=== PATIENT | male | born 1955 | race Caucasian/White ===

== ENCOUNTER 2017-02-24 09:39 | Observation (INO) | payer BC, OTHER ==
--- NOTE | 2017-02-24 11:44 | CR ---
INDICATION: Lung tumor, dehydration. CHEST: An AP portable upright view of the chest 02/24/2017 was compared with and revealed the heart to be slightly prominent in size, but essentially unchanged from the previous study. Overlying EKG leads are noted. A definite active infiltrate or effusion was not identified. There is an appearance suggesting exogenous obesity. IMPRESSION: No definite acute process. MTDD
[2017-02-24] MEDS ORDERED: LORazepam 2 MG/ML MDV IM PRN (11:47)
[2017-02-24] MEDS ORDERED: Lanolin/Mineral Oil/Petrolatum Ophth Oint 3.5 GM Tube EYEBOTH PRN (11:51)
[2017-02-24] MEDS ORDERED: Bisacodyl 5 MG Tab PO PRN (11:51)
[2017-02-24] MEDS ORDERED: Atropine 1% Ophth Soln 5 ML Bottle SL PRN (11:51)
[2017-02-24] MEDS ORDERED: Zolpidem 5 MG Tab PO PRN (11:51)
[2017-02-24] MEDS ORDERED: Docusate Sodium 100 MG Cap PO PRN (11:51)
[2017-02-24] MEDS ORDERED: Acetaminophen/HYDROcodone 325-10 MG Tab PO PRN (11:51)
[2017-02-24] MEDS ORDERED: Gabapentin 300 MG Cap PO PRN (11:51)
[2017-02-24] MEDS ORDERED: ALUM HYDROXIDE PO PRN ×3 (11:51)
[2017-02-24] MEDS ORDERED: Albuterol 0.083% 2.5 MG/3 ML Neb Soln NEB PRN (11:51)
[2017-02-24] MEDS ORDERED: Acetaminophen 325 MG Tab PO PRN (11:51)
[2017-02-24] MEDS ORDERED: Lidocaine 2% Viscous Solution 15 ML Cup PO PRN (11:51)
[2017-02-24] MEDS ORDERED: MAG HYDROXIDE PO PRN ×3 (11:51)
[2017-02-24] MEDS ORDERED: LIDOCAINE PO PRN ×3 (11:51)
[2017-02-24] MEDS ORDERED: Dexamethasone 4 MG Tab PO PRN (11:51)
[2017-02-24] MEDS ORDERED: Ondansetron 4 MG/2 ML SDV IVPUSH PRN (11:51)
[2017-02-24] MEDS ORDERED: Nitroglycerin 0.4 MG Tab.SL SL PRN (11:51)
[2017-02-24] MEDS ORDERED: DIPHENHYDRAMINE PO PRN ×3 (11:51)
[2017-02-24] MEDS ORDERED: Ibuprofen 600 MG Tab PO PRN (11:51)
[2017-02-24] MEDS ORDERED: Morphine 2 MG/ML Syringe IVPUSH PRN (11:51)
[2017-02-24] MEDS ORDERED: LORazepam 0.5 MG Tab PO PRN (12:09)
--- NOTE | 2017-02-24 12:31 | PCM.HP ---
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 unable to care for him as he is a large man and had fallen and she was unable to get him up resulting in EMS assistance thus brought here. periods of lucidness/combativeness/hallucinations/ confusion/fear/and falls. hospice has been working with them in the past, but he has not been fully on board with the idea, understandably as it is all so sudden. He has declined with regards to limited intake of fluids and food. still taking most meds. increasing more difficulty with urine continence as he doesnt get there in time. has a chronic sacral ulcer that has been being managed by Dr. Phyllis MD at [facility], and at home. no active infection. no foul odor or drainage. no fevers or vomiting. no sweating or choking/coughing. no stiffness or rigors. no tremors or joint swelling. no abd pain or blood in stool. no hematuria. no malodorous urine. no rash. no recent chemo. no radiation or recent changes in meds. otherwise was in good state of health until 6 months ago. Source of Information: Family Generalized Pain Score (Numeric/FACES): 4 - Related Data Allergies/Adverse Reactions: Allergies Allergy/AdvReac Type Severity Reaction Status Date / Time No Known Allergies Allergy Verified 02/24/17 09:41 Home Medications: Home Meds See Hospice Med List 1 each .XX ASDIRECTED 02/28/17 [History] Past Medical History Cardiovascular History: Reports: Blood Clots/VTE/DVT, Hypertension Respiratory History: Reports: PE, Other (See Below) Other Respiratory History: lung CA with mets Musculoskeletal History: Reports: Other (See Below) Other Musculoskeletal History: mets to bone Neurological History: Reports: Other (See Below) Other Neuro History: mets to brain Psychiatric History: Reports: Anxiety, Other (See Below) Other Psychiatric History: some confusion due to mets in the brain Immunologic History: Reports: Immunosuppression, Other (See Below) Other Immunologic History: due to CA Oncologic (Cancer) History: Reports: Bone, Brain, Lung Dermatologic History: Reports: Other (See Below) Other Dermatologic History: open wound left gluteal fold that dressed daily with packing - Infectious Disease History Infectious Disease History: Reports: Chicken Pox, Mumps Social & Family History - Family History Family Medical History: Noncontributory - Tobacco Use Smoking Status *Q: Former Smoker Years of Tobacco use: 10 Packs/Tins Daily: 1 Used Tobacco, but Quit: Yes Month Tobacco Last Used: Nov Second Hand Smoke Exposure: No - Caffeine Use Caffeine Use: Reports: Coffee Other Caffeine Use: cup - Alcohol Use Days Per Week of Alcohol Use: 0 - Recreational Drug Use Recreational Drug Use: No H&P Review of Systems - Review of Systems: Review Of Systems: ROS reveals no pertinent complaints other than HPI. Exam - Exam Exam: See Below - Vital Signs Vital Signs: Last Vital Signs Temp 97.7 F 02/24/17 11:29 Pulse 116 H 02/24/17 11:29 Resp 94 H 02/24/17 11:29 BP 107/69 02/24/17 11:29 Pulse Ox 91 L 02/24/17 09:40 Weight: 90.9 kg - Exam General: Cooperative, Lethargic HEENT: Conjunctiva Clear, Hearing Intact, Nares Patent, Posterior Pharynx Clear , Pupils Equal, Pupils Reactive, Other (dry mucous membranes) Neck: Supple, Trachea Midline Lungs: Clear to Auscultation, Normal Respiratory Effort Cardiovascular: Regular Rhythm, Tachycardia Abdomen: Soft, Hypoactive Bowel Sounds. No: Organomegaly, Guarding, Rigidity (Male) Exam: No Hernia, Normal Inspection, Circumcised Rectal (Males) Exam: Normal Rectal Tone, Prostate Normal. No: Bloody Stool, Fecal Impaction, Mass Back Exam: Other (sacral decubitus ulcer 4cm deep with healthy wound base probed with serile qtip blanching or surrounding tissue. re-packed with saline kerlex as before. ) Extremities: Normal Inspection, Normal Pulses, Cool. No: Edema Neurological: Strength Equal Bilateral. No: Focal Deficit, Clonus Neuro Extensive - Mental Status: Disorientation to Place, Disorientation to Time , Memory Loss-Recent Events, Nl Response to Commands Neuro Extensive - Motor, Sensory, Reflexes: No: Receptive Aphasia, Expressive Aphasia, Tremor Psychiatric: Labile Mood, Anxious, Agitated - Patient Data Result Diagrams: 02/24/17 10:35 02/24/17 10:35 *Q Meaningful Use (ADM) - VTE *Q VTE Criteria *Q: - Stroke *Q Stroke Criteria *Q: - AMI *Q AMI Criteria *Q: - Problem List (1) Primary lung cancer with metastasis from lung to other site SNOMED Code(s): 216800255, 660335681 ICD Code: C34.90 - MALIGNANT NEOPLASM OF UNSP PART OF UNSP BRONCHUS OR LUNG Status: Acute Priority: High (2) Palliative chemotherapy underway SNOMED Code(s): 544640758, 577853318 ICD Code: Z51.11 - ENCOUNTER FOR ANTINEOPLASTIC CHEMOTHERAPY; Z51.5 - ENCOUNTER FOR PALLIATIVE CARE Status: Acute (3) Decubitus skin ulcer SNOMED Code(s): 403917539 ICD Code: L89.90 - PRESSURE ULCER OF UNSPECIFIED SITE, UNSPECIFIED STAGE Status: Chronic Priority: High Qualifiers: Pressure ulcer location: sacral region Pressure ulcer stage: stage 4 Qualified Code(s): L89.154 - Pressure ulcer of sacral region, stage 4 (4) Hx of radiation therapy SNOMED Code(s): 244909090 ICD Code: Z92.3 - PERSONAL HISTORY OF IRRADIATION Status: Acute (5) Weight loss, abnormal SNOMED Code(s): 655052861 ICD Code: R63.4 - ABNORMAL WEIGHT LOSS Status: Acute (6) Clinical decompensation SNOMED Code(s): 98569916 ICD Code: R68.89 - OTHER GENERAL SYMPTOMS AND SIGNS Status: Acute Priority: High (7) History of dysphagia SNOMED Code(s): 861692092 ICD Code: Z87.19 - PERSONAL HISTORY OF OTHER DISEASES OF THE DIGESTIVE SYSTEM Status: Acute (8) Decrease in appetite SNOMED Code(s): 63876483 ICD Code: R63.0 - ANOREXIA Status: Acute Priority: High (9) Dehydration with hyponatremia SNOMED Code(s): 43109391 ICD Code: E87.1 - HYPO-OSMOLALITY AND HYPONATREMIA Status: Acute Priority : High (10) Chronic, continuous use of opioids SNOMED Code(s): 985485669 ICD Code: F11.90 - OPIOID USE, UNSPECIFIED, UNCOMPLICATED Status: Acute Priority: High (11) Requires daily assistance for activities of daily living (ADL) and comfort needs SNOMED Code(s): 203969469 ICD Code: Z78.9 - OTHER SPECIFIED HEALTH STATUS Status: Acute Priority: High Problem List Initiated/Reviewed/Updated: Yes Orders Last 24hrs: Active Orders 24 hr Category Date Time Status Activity as Tolerated [RC] .Routine Care 02/24/17 11:47 Ordered Enema [RC] PRN Care 02/24/17 11:49 Ordered Height and Weight [RC] DAILY Care 02/24/17 11:51 Ordered Intake and Output [RC] Q6HR Care 02/24/17 11:59 Ordered RT Aerosol Therapy [RC] ASDIRECTED Care 02/24/17 12:03 Ordered Turn and Reposition [RC] Q2HR Care 02/24/17 11:49 Ordered Up to Chair [RC] ASDIRECTED Care 02/24/17 11:51 Ordered Consult to Hospice [CONS] Routine Cons 02/24/17 11:51 Ordered Consult to [place] Layer [CONS] Routine Cons 02/24/17 11:51 Ordered Consult to Spiritual Care [CONS] Routine Cons 02/24/17 11:51 Ordered OT Evaluation and Treatment [CONS] Routine Cons 02/24/17 11:51 Ordered PT Evaluation and Treatment [CONS] Routine Cons 02/24/17 11:51 Ordered Respiratory Care Assess and Treatment [CONS] Routine Cons 02/24/17 11:51 Ordered CATECHIST Evaluation and Treatment [CONS] Routine Cons 02/24/17 11:51 Ordered Full Liquid Diet [DIET] Diet 02/24/17 Breakfast Ordered Soft Diet [DIET] Diet 02/24/17 Breakfast Ordered CULTURE URINE [RM] Stat Lab 02/24/17 11:51 Uncollected PTT,PARTIAL THROMBOPLSTIN TIME [COAG] Routine Lab 02/24/17 11:51 Ordered Acetaminophen [Tylenol] Med 02/24/17 11:51 Ordered 650 mg PO Q3H PRN Albuterol [Proventil Neb Soln] Med 02/24/17 11:51 Ordered 2.5 mg NEB Q2H PRN Aspirin [Halfprin] Med 02/25/17 09:00 Ordered 81 mg PO DAILY Atropine 1% [Isopto Atropine 1% Ophth Soln] Med 02/24/17 11:51 Ordered See Dose Instructions SL Q2H PRN Bisacodyl [Dulcolax] Med 02/24/17 11:51 Ordered 5 mg PO DAILY PRN Dexamethasone Med 02/24/17 11:51 Ordered 4 mg PO DAILY PRN Dextrose 5%-Normal Saline with KCl 20 mEq @ 150 mL/Hr ( Med 02/24/17 12:30 Ordered 1000 mL) Dextrose 5%-0.9% NaCl with KCl [D5 NS with 20 mEq KCl] 1,000 ml IV ASDIRECTED Docusate Sodium/Sennosides [Senna Plus] Med 02/24/17 21:00 Ordered 1 each PO BID Enoxaparin [Lovenox] Med 02/24/17 21:00 Ordered 100 mg SUBCUT BID Escitalopram [Lexapro] Med 02/25/17 09:00 Ordered 10 mg PO DAILY Gabapentin [Neurontin] Med 02/24/17 11:51 Ordered 300 mg PO BEDTIME PRN LORazepam [Ativan] Med 02/24/17 12:09 Ordered 0.5 mg PO Q6HR PRN LORazepam [Ativan] Med 02/24/17 11:47 Ordered 1 mg IM Q6H PRN Lactulose [Chronulac] Med 02/24/17 12:09 Ordered 30 ml PO BID PRN Lanolin/Min Oil/Petrolatum [Artificial Tears] Med 02/24/17 11:51 Ordered See Dose Instructions EYELF Q1H PRN Lidocaine 2% [Xylocaine 2% Viscous] Med 02/24/17 11:51 Ordered 5 ml PO Q4H PRN Magic Mouthwash Med 02/24/17 11:51 Ordered Alum Hydroxide/Mag Hydroxide [Mag-Al Susp] 30 ml Lidocaine 2% [Xylocaine 2% Viscous] 30 ml diphenhydrAMINE [Benadryl] 75 mg PO QID Magnesium Oxide Med 02/25/17 09:00 Ordered 400 mg PO DAILY Metoprolol Tartrate [Lopressor] Med 02/24/17 21:00 Ordered 12.5 mg PO BID Morphine Med 02/24/17 11:51 Ordered 2 mg IVPUSH Q2H PRN Morphine [MS Contin] Med 02/24/17 21:00 Ordered 60 mg PO Q12HR Nitroglycerin [Nitrostat] Med 02/24/17 11:51 Ordered 0.4 mg SL Q5M PRN Ondansetron [Zofran] Med 02/24/17 11:51 Ordered 4 mg IVPUSH Q4H PRN Pantoprazole [ProTONIX] Med 02/25/17 09:00 Ordered 40 mg PO DAILY Polyethylene Glycol 3350 [MiraLAX] Med 02/24/17 21:00 Ordered 17 gm PO BID Zolpidem [Ambien] Med 02/24/17 11:51 Ordered 5 mg PO BEDTIME PRN oxyCODONE Med 02/24/17 12:09 Ordered 10 mg PO Q4HR PRN DME for Inpatients [OM.PC] Routine Oth 02/24/17 11:49 Ordered RT Suction Nasopharyngeal [RESPCARE] Routine Oth 02/24/17 11:48 Ordered Sequential Compression Device [OM.PC] Per Unit Routine Oth 02/24/17 12:01 Ordered Medication Orders Acetaminophen (Tylenol) 650 mg PO Q3H PRN PRN Reason: Pain/Fever Albuterol (Proventil Neb Soln) 2.5 mg NEB Q2H PRN PRN Reason: Shortness Of Breath/wheezing Artificial Tears (Artificial Tears) 0 gm EYELF Q1H PRN PRN Reason: Dry Eyes Aspirin (Halfprin) 81 mg PO DAILY ETHAN Atropine Sulfate (Isopto Atropine 1% Ophth Soln) 0 ml SL Q2H PRN PRN Reason: Copious Secretion Bisacodyl (Dulcolax) 5 mg PO DAILY PRN PRN Reason: Constipation Al Hydroxide/Mg Hydroxide 30 ml/ Lidocaine HCl 30 ml/Diphenhydramine HCl 75 mg 0 ml PO QID PRN PRN Reason: acid reflux Dexamethasone (Dexamethasone) 4 mg PO DAILY PRN PRN Reason: cerebral edema Enoxaparin Sodium (Lovenox) 100 mg SUBCUT BID [facility] Escitalopram Oxalate (Lexapro) 10 mg PO DAILY ETHAN Gabapentin (Neurontin) 300 mg PO BEDTIME PRN PRN Reason: Nerve Pain Potassium Chloride/Dextrose/Sod Cl (D5 Ns With 20 Meq Kcl) 1,000 mls @ 150 mls/ hr IV ASDIRECTED ETHAN Lactulose (Chronulac) gm PO BID PRN PRN Reason: Constipation Lidocaine HCl (Xylocaine 2% Viscous) 5 ml PO Q4H PRN PRN Reason: oral care Lorazepam (Ativan) 1 mg IM Q6H PRN PRN Reason: aggitation;restlessness Lorazepam (Ativan) 0.5 mg PO Q6HR PRN PRN Reason: Anxiety Magnesium Oxide (Magnesium Oxide) 400 mg PO DAILY [facility] Metoprolol Tartrate (Lopressor) 12.5 mg PO BID ETHAN Morphine Sulfate (Morphine) 2 mg IVPUSH Q2H PRN PRN Reason: Pain (severe 7-10) Morphine Sulfate (Ms Contin) 60 mg PO Q12HR ETHAN Nitroglycerin (Nitrostat) 0.4 mg SL Q5M PRN PRN Reason: Chest Pain Stop: 02/24/17 12:02 Ondansetron HCl (Zofran) 4 mg IVPUSH Q4H PRN PRN Reason: Nausea/Vomiting Oxycodone HCl (Oxycodone) 10 mg PO Q4HR PRN PRN Reason: Pain Pantoprazole Sodium (Protonix) 40 mg PO DAILY ETHAN Polyethylene Glycol (Miralax) 17 gm PO BID ETHAN Senna/Docusate Sodium (Senna Plus) tab PO BID ETHAN Zolpidem Tartrate (Ambien) 5 mg PO BEDTIME PRN PRN Reason: Sleep Assessment/Plan Comment:: at this time, will hydrate and attempt orals. will get Dr. Phyllis MD to take a look at the ulcer if able and give recommendations. if pt is not able to eat or drink appropriate amounts, would not want any type of parentaral feeds or tube feeds. he wishes to be dni/dnr. family wishes to have hospice consult and both his mother and father and , all of whom are present agree to this. will get ot/pt here for ROM and nursing for wound cares. aspiration and fall percautions. declines silva and will use hand urinal. dvt prophylaxis. reduce morphine dose and add on iv prn for now depending on mental status and pain control. all questions answered and comfortable with plan of care.
[2017-02-24] MEDS ORDERED: Lactulose Soln 10 GM/15 ML 30 ML UD Cup PO PRN (13:00)
[2017-02-24] MEDS: oxyCODONE 5 MG Tab PO PRN ×3 (13:02→20:57)
[2017-02-24] MEDS: Dextrose 5%-0.9% NaCl with KCl 1,000 ML IV SCH ×3 (13:20→20:03)
[2017-02-24] MEDS ORDERED: Polyvinyl Alcohol 1.4% Ophth Soln 15 ML Bottle EYEBOTH PRN (13:52)
[2017-02-24] MEDS ORDERED: Alum Hydroxide/Mag Hydroxide 30 ML, Lidocaine 2% 30 ML, diphenhydrAMINE 75 MG PO ONE ×3 (14:38)
[2017-02-24] MEDS ORDERED: Haloperidol 0.5 MG Tab PRN (16:59)
[2017-02-24] MEDS ORDERED: LORazepam 2 MG/ML MDV IV PRN (17:00)
[2017-02-24] MEDS: Haloperidol 0.5 MG Tab PO PRN (17:14)
[2017-02-24] MEDS ORDERED: Pantoprazole 40 MG Tab.CR PO SCH (17:30)
[2017-02-24] MEDS: Polyethylene Glycol 3350 Powder 17 GM Packet PO SCH (20:13)
[2017-02-24] MEDS: Metoprolol Tartrate 25 MG Tab PO SCH (20:14)
[2017-02-24] MEDS: Enoxaparin 100 MG/1 ML Syringe SUBCUT SCH (20:14)
[2017-02-24] MEDS: LORazepam 0.5 MG Tab PO PRN (20:57)
[2017-02-24] MEDS ORDERED: Morphine 60 MG Tab.ER PO SCH (21:00)
[2017-02-24] MEDS ORDERED: Morphine 30 MG Tab.ER PO SCH (21:00)
--- NOTE | 2017-02-24 23:33 | CONS ---
DATE OF CONSULTATION: 02/24/2017 This patient is seen in consultation from Dr. Ramachandran for evaluation of a gluteal abscess that was incised and drained in [place] recently. This has been cared for at home by his with twice daily wet-to-dry dressing changes. He is hospitalized today with dehydration. He does have metastatic lung cancer and will be seeking hospice care. PHYSICAL EXAMINATION: Reveals a pleasant gentleman who appears to be in no acute distress and resting comfortably. He is rolled on his left side and he does have a gluteal abscess that has completely granulated. He has an opening approximately 5 cm in length and approximately 4 cm in depth. The gauze dressing is removed and this is completely granulated without any evidence of infection. At this point, I will have them reduce the amount of gauze and only change it once daily to allow this to start to close. /[id number] TAVIA/LUNA
[2017-02-25] MEDS: LORazepam 0.5 MG Tab PO PRN ×2 (02:34→07:26)
[2017-02-25] MEDS: oxyCODONE 5 MG Tab PO PRN ×2 (02:35→07:26)
[2017-02-25] MEDS: Dextrose 5%-0.9% NaCl with KCl 1,000 ML IV SCH (03:47)
[2017-02-25] MEDS: Haloperidol 0.5 MG Tab PO PRN (04:10)
[2017-02-25 07:59] VITALS: BP 139/78
[2017-02-25] MEDS: Metoprolol Tartrate 25 MG Tab PO SCH (08:59)
[2017-02-25] MEDS ORDERED: Magnesium Oxide 400 MG Tab PO SCH (09:00)
[2017-02-25] MEDS ORDERED: Escitalopram 10 MG Tab PO SCH (09:00)
[2017-02-25] MEDS: Enoxaparin 100 MG/1 ML Syringe SUBCUT SCH (09:00)
[2017-02-25] MEDS ORDERED: Aspirin 81 MG Tab.EC PO SCH (09:00)
[2017-02-25] MEDS ORDERED: Morphine 60 MG Tab.ER PO SCH (09:00)
[2017-02-25] MEDS ORDERED: Morphine 30 MG Tab.ER PO SCH (09:00)
[2017-02-25] MEDS: Polyethylene Glycol 3350 Powder 17 GM Packet PO SCH (09:26)
[2017-02-25] MEDS ORDERED: oxyCODONE 5 MG Tab PO PRN (13:30)
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
--- NOTE | 2017-02-27 19:27 | PCM.DCSUM1 ---
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 he was dehydrated, losing weight due to refusing or eat and drink and unable to care for him as he is a large man and had fallen and she was unable to get him up resulting in EMS assistance to get him to the hospital. periods of lucidness/ combativeness/hallucinations/confusion/fear/and falls. hospice has been working with them in the past, and met with them yesterday. the patient and family wish to transition to hospice services. Dr. Ferguson saw him yesterday and said nothing different to due with ulceration other that keep dressing as before. Will not heal. Tells me he is comfortable and not in pain at this time. took some orals this morning. tells me he wants to go home. i explained that home isnt a safe place for him at this time as he is weak and falling more. he agrees. also agrees with hospice. tells me he would not want any tubes or artificial feeds. will try and drink more. just no appetite. knows he saw dr. ferguson yesterday. [place] remembers me. ROS: he had been aggitated and disoriented over night. redirected. no fevers or vomiting. no sweating or choking/coughing. no stiffness or rigors. no tremors or joint swelling. no abd pain or blood in stool. no hematuria. no malodorous urine. no rash. - Discharge Data Discharge Date: 02/25/17 Discharge Disposition: DC/Tfer to Hospice-Med Fac 51 Condition: Good - Discharge Diagnosis/Problem(s) (1) Primary lung cancer with metastasis from lung to other site SNOMED Code(s): 224273101, 013818081 ICD Code: C34.90 - MALIGNANT NEOPLASM OF UNSP PART OF UNSP BRONCHUS OR LUNG Status: Acute Priority: High (2) Palliative chemotherapy underway SNOMED Code(s): 782567270, 599526818 ICD Code: Z51.11 - ENCOUNTER FOR ANTINEOPLASTIC CHEMOTHERAPY; Z51.5 - ENCOUNTER FOR PALLIATIVE CARE Status: Acute (3) Decubitus skin ulcer SNOMED Code(s): 035178440 ICD Code: L89.90 - PRESSURE ULCER OF UNSPECIFIED SITE, UNSPECIFIED STAGE Status: Chronic Priority: High Qualifiers: Pressure ulcer location: sacral region Pressure ulcer stage: stage 4 Qualified Code(s): L89.154 - Pressure ulcer of sacral region, stage 4 (4) Hx of radiation therapy SNOMED Code(s): 599865936 ICD Code: Z92.3 - PERSONAL HISTORY OF IRRADIATION Status: Acute (5) Weight loss, abnormal SNOMED Code(s): 708606385 ICD Code: R63.4 - ABNORMAL WEIGHT LOSS Status: Acute (6) Clinical decompensation SNOMED Code(s): 14445831 ICD Code: R68.89 - OTHER GENERAL SYMPTOMS AND SIGNS Status: Acute Priority: High (7) History of dysphagia SNOMED Code(s): 746581084 ICD Code: Z87.19 - PERSONAL HISTORY OF OTHER DISEASES OF THE DIGESTIVE SYSTEM Status: Acute (8) Decrease in appetite SNOMED Code(s): 91704820 ICD Code: R63.0 - ANOREXIA Status: Acute Priority: High (9) Dehydration with hyponatremia SNOMED Code(s): 81668959 ICD Code: E87.1 - HYPO-OSMOLALITY AND HYPONATREMIA Status: Acute Priority : High (10) Chronic, continuous use of opioids SNOMED Code(s): 258841711 ICD Code: F11.90 - OPIOID USE, UNSPECIFIED, UNCOMPLICATED Status: Acute Priority: High (11) Requires daily assistance for activities of daily living (ADL) and comfort needs SNOMED Code(s): 132038004 ICD Code: Z78.9 - OTHER SPECIFIED HEALTH STATUS Status: Acute Priority: High - Patient Summary/Data Consults: Consultations 02/24/17 11:51 Consult to Hospice [CONS] Routine Comment: Physician Instructions: Consult to Laboratory Specialist [CONS] Routine Comment: Physician Instructions: Reason for Consult: placement/discharge planning. Consult to Spiritual Care [CONS] Routine OT Evaluation and Treatment [CONS] Routine Please Evaluate and Treat. OT Reason for Consult: Discharge Planning This query below is only for informational purposes and is not editable. Admission Diagnosis/Problem: Dehydration PT Evaluation and Treatment [CONS] Routine Please Evaluate and Treat. PT Reason for Consult: Strengthening Pending Discharge: ROM This query below is only for informational purposes and is not editable. Admission Diagnosis/Problem: Dehydration Respiratory Care Assess and Treatment [CONS] Routine Comment: Physician Instructions: LEAD SHOP OPERATOR Evaluation and Treatment [CONS] Routine Please Evaluate and Treat LEAD SHOP OPERATOR Reason for Consult: Dysphagia This query below is only for informational purposes and is not editable. Admission Diagnosis/Problem: Dehydration - Discharge Plan Home Medications: Home Meds See Hospice Med List 1 each .XX ASDIRECTED 02/28/17 [History] - Discharge Summary/Plan Comment DC Time >30 min.: Yes Discharge Summary/Plan Comment: He posses a danger to himself and to his as she can not keep him in a safe location without 24h monitoring for fear he may hurt himself by falling or hurt her as she tries to manage him. the family and pt are now on board with hospice for support and cares and will declining function and per their assessment as well, he can not go home safely and is at the end stages of his disease. the plan is to keep him safe and comfortable and continue adequate pain control, family support, and education. I agree with all these measures as appropriate. there were not plans for continued chemo or radiation therapy due to intolerance and progression of disease with worsening qualitiy of life. - General Info Date of Service: 02/25/17 Subjective Update: see summary - Review of Systems Systems Review Comment: see summary - Patient Data Vitals - Most Recent: Last Vital Signs Temp 97.6 F 02/25/17 07:58 Pulse 112 H 02/25/17 08:59 Resp 22 H 02/25/17 07:58 BP 139/78 02/25/17 08:59 Pulse Ox 96 02/25/17 07:58 Weight - Most Recent: 92.125 kg [facility] Results - Last 24 hrs: Microbiology 02/24/17 14:25 Urine Culture - Final Urine, Voided MIXED POSITIVE HANS DAY 2 Med Orders - Current: Current Medications Discontinued Medications Acetaminophen (Tylenol) 650 mg PO Q3H PRN PRN Reason: Pain/Fever Hydrocodone Bitart/Acetaminophen ([facility] 325-10 Mg) 1 tab PO Q4H PRN PRN Reason: Pain (moderate 4-6) Albuterol (Proventil Neb Soln) 2.5 mg NEB Q2H PRN PRN Reason: Shortness Of Breath/wheezing Artificial Tears (Artificial Tears) 0 gm EYEBOTH Q1H PRN PRN Reason: Dry Eyes Artificial Tears (Liquitears 1.4% Ophth Soln) 0 ml EYEBOTH Q1H PRN PRN Reason: Dry Eyes Aspirin (Halfprin) 81 mg PO DAILY [facility] Last Admin: 02/25/17 08:58 Dose: 81 mg Atropine Sulfate (Isopto Atropine 1% Ophth Soln) 0 ml SL Q2H PRN PRN Reason: Copious Secretion Bisacodyl (Dulcolax) 5 mg PO DAILY PRN PRN Reason: Constipation Al Hydroxide/Mg Hydroxide 5 ml / Lidocaine HCl 5 ml/Diphenhydramine HCl 12.5 mg 0 ml PO QID PRN PRN Reason: acid reflux Al Hydroxide/Mg Hydroxide 30 ml/ Lidocaine HCl 30 ml/Diphenhydramine HCl 75 mg 0 ml PO .ST-MED ONE Stop: 02/24/17 14:39 Dexamethasone (Dexamethasone) 4 mg PO DAILY PRN PRN Reason: cerebral edema Docusate Sodium (Colace) 100 mg PO BID PRN PRN Reason: Constipation Enoxaparin Sodium (Lovenox) 100 mg SUBCUT BID [facility] Last Admin: 02/25/17 09:00 Dose: 100 mg Escitalopram Oxalate (Lexapro) 10 mg PO DAILY [facility] Last Admin: 02/25/17 08:58 Dose: 10 mg Gabapentin (Neurontin) 300 mg PO BEDTIME PRN PRN Reason: Nerve Pain Haloperidol (Haldol) 0.5 mg PO Q6H PRN PRN Reason: Agitation Last Admin: 02/25/17 04:10 Dose: 0.5 mg Haloperidol (Haldol) 0.5 mg .XX Q6H PRN PRN Reason: rectal for agitation Potassium Chloride/Dextrose/Sod Cl (D5 Ns With 20 Meq Kcl) 1,000 mls @ 150 mls/ hr IV Q7H [facility] Stop: 02/24/17 19:00 Last Admin: 02/24/17 20:01 Dose: 125 mls/hr Potassium Chloride/Dextrose/Sod Cl (D5 Ns With 20 Meq Kcl) 1,000 mls @ 125 mls/ hr IV Q8H [facility] Last Admin: 02/25/17 03:47 Dose: 125 mls/hr Ibuprofen (Motrin) 600 mg PO Q6H PRN PRN Reason: Pain (mild 1-3) Lactulose (Cephulac) 20 gm PO BID PRN PRN Reason: CONSTIPATION Lidocaine HCl (Xylocaine 2% Viscous) 5 ml PO Q4H PRN PRN Reason: oral care Lorazepam (Ativan) 1 mg IM Q6H PRN PRN Reason: aggitation;restlessness Lorazepam (Ativan) 0.5 mg PO Q6H PRN PRN Reason: Anxiety Last Admin: 02/24/17 13:02 Dose: 0.5 mg Lorazepam (Ativan) 1 mg IV Q4H PRN PRN Reason: aggitation;restlessness Lorazepam (Ativan) 0.5 mg PO Q4H PRN PRN Reason: Anxiety Last Admin: 02/25/17 07:26 Dose: 0.5 mg Magnesium Oxide (Magnesium Oxide) 400 mg PO DAILY [facility] Last Admin: 02/25/17 09:01 Dose: 400 mg Metoprolol Tartrate (Lopressor) 12.5 mg PO BID [facility] Last Admin: 02/25/17 08:59 Dose: 12.5 mg Morphine Sulfate (Morphine) 2 mg IVPUSH Q2H PRN PRN Reason: Pain (severe 7-10) Morphine Sulfate (Ms Contin) 60 mg PO Q12H [facility] Morphine Sulfate (Ms Contin) 30 mg PO Q12H [facility] Last Admin: 02/24/17 20:13 Dose: 30 mg Morphine Sulfate (Ms Contin) 60 mg PO Q12H [facility] Last Admin: 02/25/17 09:27 Dose: 60 mg Nitroglycerin (Nitrostat) 0.4 mg SL Q5M PRN PRN Reason: Chest Pain Stop: 02/24/17 12:02 Ondansetron HCl (Zofran) 4 mg IVPUSH Q4H PRN PRN Reason: Nausea/Vomiting Oxycodone HCl (Oxycodone) 10 mg PO Q4H PRN PRN Reason: Pain Oxycodone HCl (Oxycodone) 10 mg PO Q4H PRN PRN Reason: Pain Last Admin: 02/25/17 07:26 Dose: 10 mg Oxycodone HCl (Oxycodone) 10 mg PO Q6H PRN PRN Reason: Pain Pantoprazole Sodium (Protonix) [facility] [place] Last Admin: 02/24/17 17:58 Dose: Not Given Polyethylene Glycol (Miralax) 17 gm PO BID [facility] Last Admin: 02/25/17 09:26 Dose: Not Given Senna/Docusate Sodium (Senna Plus) tab PO BID [facility] Senna/Docusate Sodium (Senna Plus) 2 tab PO BID [facility] Last Admin: 02/25/17 09:01 Dose: 2 tab Zolpidem Tartrate (Ambien) 5 mg PO BEDTIME PRN PRN Reason: Sleep Last Admin: 02/24/17 22:28 Dose: 5 mg - Exam Physical Findings Comments:: General: Cooperative, alert HEENT: Conjunctiva Clear, Hearing Intact, Nares Patent, Posterior Pharynx Clear , Pupils Equal, Pupils Reactive, Other (dry mucous membranes) Neck: Supple, Trachea Midline Lungs: Clear to Auscultation, Normal Respiratory Effort Cardiovascular: Regular Rhythm, Tachycardia Abdomen: Soft, Hypoactive Bowel Sounds. No: Organomegaly, Guarding, Rigidity (Male) Exam: deferred Rectal (Males) Exam: deferred Back Exam: Other (sacral decubitus packing dry) Extremities: Normal Inspection, Normal Pulses, Cool. No: Edema Neurological: Strength Equal Bilateral. No: Focal Deficit, Clonus Neuro Extensive - Mental Status: Disorientation to Place, Disorientation to Time , Memory Loss-Recent Events, Nl Response to Commands Neuro Extensive - Motor, Sensory, Reflexes: No: Receptive Aphasia, Expressive Aphasia, Tremor Psychiatric: Labile Mood, Anxious, Agitated *Q Meaningful Use (DIS) - VTE *Q VTE Criteria *Q: - Stroke *Q Stroke Criteria *Q: - AMI *Q AMI Criteria *Q:
== END 2017-02-25 12:50 | disposition hospice, inpatient (51) ==
LOC: FB.ED 09:39 → FB.MS 11:10
PROVIDERS: ADMIT Family Medicine; ATTEND Family Medicine
DX: C34.90 Malignant neoplasm of unspecified part of unspecified bronchus or lung (principal); Z51.5 Encounter for palliative care; L89.90 Pressure ulcer of unspecified site, unspecified stage; Z92.3 Personal history of irradiation; R63.4 Abnormal weight loss; R68.89 Other general symptoms and signs; Z87.19 Personal history of other diseases of the digestive system; R63.0 Anorexia; E87.1 Hypo-osmolality and hyponatremia; F11.90 Opioid use, unspecified, uncomplicated; Z78.9 Other specified health status; Z79.82 Long term (current) use of aspirin; Z79.899 Other long term (current) drug therapy; I10 Essential (primary) hypertension; F41.9 Anxiety disorder, unspecified; Z87.891 Personal history of nicotine dependence; D64.9 Anemia, unspecified
CPT/HCPCS: 36415; 71010; 80053; 81001; 82150; 82550; 83605; 84484; 85025; 85610; 85730; 86140; 87040; 87086; 93005; 96360; 96361; 96372; 99285; A9270; G0378; J1650; J3480

== ENCOUNTER 2017-02-25 12:51 | Inpatient (IN) | payer OTHER ==
[2017-02-25] MEDS ORDERED: ACETAMINOPHEN 325 MG PO PRN (13:16)
[2017-02-25] MEDS ORDERED: ACETAMINOPHEN 650 MG RECTAL PRN (13:19)
[2017-02-25] MEDS ORDERED: ALBUTEROL INH PRN (13:20)
[2017-02-25] MEDS ORDERED: Bisacodyl 10 MG Supp *PTOM RECTAL PRN (13:22)
[2017-02-25] MEDS ORDERED: LACTULOSE 10 GM/15 ML PO PRN (13:34)
[2017-02-25] MEDS: Sodium Chloride 0.9% 10 ML Syringe FLUSH PRN ×2 (13:40→18:41)
[2017-02-25] MEDS: LORazepam 2 MG/ML MDV IVPUSH PRN (13:40)
[2017-02-25] MEDS ORDERED: ZOLPIDEM 5 MG PO PRN (13:41)
[2017-02-25] MEDS ORDERED: Scopolamine 1.5 MG Transdermal Patch *PTOM TOP PRN (13:42)
[2017-02-25] MEDS ORDERED: Hyoscyamine 0.125 MG Tab.SL *PTOM SL PRN (13:44)
[2017-02-25] MEDS ORDERED: Hyoscyamine 0.125 MG Tab.SL PO PRN (13:44)
[2017-02-25] MEDS ORDERED: MAG HYDROXIDE PO PRN ×3 (13:46)
[2017-02-25] MEDS ORDERED: ALUM HYDROXIDE PO PRN ×3 (13:46)
[2017-02-25] MEDS ORDERED: LIDOCAINE PO PRN ×3 (13:46)
[2017-02-25] MEDS ORDERED: DIPHENHYDRAMINE PO PRN ×3 (13:46)
[2017-02-25] MEDS ORDERED: POLYVINYL ALCOHOL 1.4% EYEBOTH PRN (13:49)
[2017-02-25] MEDS ORDERED: VISCOUS PO PRN (13:51)
[2017-02-25] MEDS ORDERED: LIDOCAINE 2% PO PRN (13:51)
[2017-02-25] MEDS: Haloperidol 0.5 MG Tab PO SCH ×2 (14:32→20:04)
[2017-02-25] MEDS: Haloperidol 0.5 MG Tab SCH ×2 (15:45→20:04)
[2017-02-25] MEDS ORDERED: Ondansetron 4 MG/2 ML SDV IVPUSH PRN (16:19)
[2017-02-25] MEDS: Pantoprazole 40 MG Tab.CR *PTOM PO SCH (18:02)
[2017-02-25] MEDS: Morphine 4 MG/ML Syringe IVPUSH PRN (18:41)
[2017-02-25] MEDS: Metoprolol Tartrate 25 MG Tab *PTOM PO SCH (21:33)
[2017-02-25] MEDS: Docusate Sodium/Sennosides 50-8.6 MG Tab *PTOM PO SCH (21:34)
[2017-02-25] MEDS: Polyethylene Glycol 3350 Powder 17 GM Packet PO SCH (21:34)
[2017-02-25] MEDS: Gabapentin 300 MG Cap *PTOM PO SCH (21:34)
[2017-02-25] MEDS: Morphine 30 MG Tab.ER PO SCH (21:37)
[2017-02-26] MEDS: LORazepam 2 MG/ML MDV IVPUSH PRN ×2 (00:40→14:01)
[2017-02-26] MEDS: Haloperidol 0.5 MG Tab PO SCH ×4 (03:06→21:20)
[2017-02-26] MEDS: Haloperidol 0.5 MG Tab SCH ×4 (03:06→21:26)
[2017-02-26] MEDS: Docusate Sodium/Sennosides 50-8.6 MG Tab *PTOM PO SCH ×2 (08:36→21:24)
[2017-02-26] MEDS: Polyethylene Glycol 3350 Powder 17 GM Packet PO SCH (08:36)
[2017-02-26] MEDS: Metoprolol Tartrate 25 MG Tab *PTOM PO SCH ×2 (08:36→21:25)
[2017-02-26] MEDS: Morphine 30 MG Tab.ER PO SCH ×2 (08:36→21:20)
[2017-02-26] MEDS ORDERED: Escitalopram 10 MG Tab PO SCH (09:00)
[2017-02-26] MEDS: oxyCODONE 5 MG Tab *PTOM PO PRN (13:07)
[2017-02-26] MEDS: Sodium Chloride 0.9% 10 ML Syringe FLUSH PRN (14:02)
--- NOTE | 2017-02-26 14:37 | PCM.HP ---
H&P History of Present Illness - General Date of Service: 02/25/17 Admit Problem/Dx: Admission Diagnosis/Problem Admission Diagnosis/Problem Non-small cell lung cancer - Related Data Allergies/Adverse Reactions: Allergies Allergy/AdvReac Type Severity Reaction Status Date / Time No Known Allergies Allergy Verified 02/24/17 09:41 Home Medications: Home Meds Aspirin [Lo-Dose Aspirin EC] 81 mg PO DAILY 02/24/17 [History] Enoxaparin [Lovenox] 100 mg SQ BID 02/24/17 [History] Escitalopram [Lexapro] 10 mg PO DAILY 02/24/17 [History] LORazepam 0.5 mg PO Q6HR PRN 02/24/17 [History] Lactulose 30 ml PO BID PRN 02/24/17 [History] Magnesium Oxide [Magnesium Oxide] 400 mg PO DAILY 02/24/17 [History] Metoprolol Tartrate [Metoprolol Tartrate] 12.5 mg PO BID 02/24/17 [History] Morphine [MS Contin] 30 mg PO Q12HR 02/24/17 [History] Multivitamin,Stress Formula [Stress Formula] 1 each PO DAILY 02/24/17 [History] Pantoprazole Sodium [Protonix] 40 mg PO ACDINNER 02/24/17 [History] Polyethylene Glycol 3350 [MiraLAX] 17 gm PO BID PRN 02/24/17 [History] Sennosides/Docusate Sodium [Senna-Docusate Sodium] 2 each PO BID 02/24/17 [ History] oxyCODONE [Oxycodone HCl] 10 mg PO Q4HR PRN 02/24/17 [History] Past Medical History Cardiovascular History: Reports: Blood clots/VTE/DVT, Hypertension Respiratory History: Reports: PE, Other (see below) Other Respiratory History: lung CA with mets Musculoskeletal History: Reports: Other (see below) Other Musculoskeletal History: mets to bone Neurological History: Reports: Other (see below) Other Neuro History: mets to brain Psychiatric History: Reports: Anxiety, Other (see below) Other Psychiatric History: some confusion due to mets in the brain Immunologic History: Reports: Immunosuppression, Other (see below) Other Immunologic History: due to CA Oncologic (Cancer) History: Reports: Bone, Brain, Lung Dermatologic History: Reports: Other (see below) Other Dermatologic History: open wound left gluteal fold that dressed daily with packing - Infectious Disease History Infectious Disease History: Reports: Chicken pox, Mumps Social & Family History - Family History Family Medical History: Noncontributory - Tobacco Use Smoking Status *Q: Former Smoker Years of Tobacco use: 10 Packs/Tins Daily: 1 Used Tobacco, but Quit: Yes Month Tobacco Last Used: November Second Hand Smoke Exposure: No - Caffeine Use Caffeine Use: Reports: Coffee Other Caffeine Use: cup - Alcohol Use Days Per Week of Alcohol Use: 0 - Recreational Drug Use Recreational Drug Use: No Exam - Vital Signs Vital Signs: Last Vital Signs Temp 99.0 F 02/26/17 07:36 Pulse 113 H 02/26/17 08:36 Resp 18 02/26/17 07:36 BP 127/86 02/26/17 08:36 Pulse Ox 95 02/26/17 07:36 Weight: 93.531 kg *Q Meaningful Use (ADM) - VTE *Q VTE Criteria *Q: - Stroke *Q Stroke Criteria *Q: - AMI *Q AMI Criteria *Q: Orders Last 24hrs: Active Orders 24 hr Category Date Time Status Insert Urinary Catheter [OM.PC] Per Unit Routine Care 02/25/17 16:00 Ordered Oxygen Therapy Adult [Oxygen Therapy] [RC] ASDIRECTED Care 02/25/17 15:56 Active Urinary Catheter Assessment [RC] QSHIFT Care 02/25/17 15:54 Hold Vital Signs [RC] 08,16,00 Care 02/25/17 16:14 Active Adult Diet [DIET] Diet 02/25/17 Dinner Active Alum Hydroxide/Mag Hydroxide [Mag-Al Susp] 5 ml Med 02/25/17 13:46 Active Lidocaine 2% [Xylocaine 2% Viscous] 5 ml diphenhydrAMINE [Benadryl] 12.5 mg PO QID Docusate Sodium/Sennosides [Senna Plus] Med 02/25/17 21:00 Active 2 tab PO BID Escitalopram [Lexapro] Med 02/26/17 09:00 Active 10 mg PO DAILY Gabapentin [Neurontin] Med 02/25/17 21:00 Active 300 mg PO BEDTIME Haloperidol [Haldol] Med 02/25/17 14:00 Active 0.5 mg .XX Q6H Haloperidol [Haldol] Med 02/25/17 14:00 Active 0.5 mg PO Q6H Hyoscyamine [Hyomax-SL] Med 02/25/17 13:44 Active 0.125 mg PO Q4H PRN Hyoscyamine [Hyomax-SL] Med 02/25/17 13:44 Active 0.125 mg SL Q4H PRN Lidocaine 2% [Xylocaine 2% Viscous] Med 02/25/17 13:51 Active 5 ml PO Q4H PRN Metoprolol Tartrate [Lopressor] Med 02/25/17 21:00 Active 12.5 mg PO BID Morphine [MS Contin] Med 02/25/17 21:00 Active 60 mg PO BID Ondansetron [Zofran] Med 02/25/17 16:19 Active 4 mg IVPUSH Q4H PRN Pantoprazole [ProTONIX] Med 02/25/17 17:30 Active 40 mg PO ACDINNER Polyethylene Glycol 3350 [MiraLAX] Med 02/25/17 21:00 Active 17 gm PO BID Polyvinyl Alcohol [LiquiTears 1.4% Ophth Soln] Med 02/25/17 13:49 Active 0 ml EYEBOTH Q1H PRN Scopolamine [Transderm-Scop] Med 02/25/17 13:42 Active 1.5 mg TOP Q72H PRN Sodium Chloride 0.9% [Saline Flush] Med 02/25/17 15:51 Active 10 ml FLUSH ASDIRECTED PRN Zolpidem [Ambien] Med 02/25/17 13:41 Active 5 mg PO BEDTIME PRN oxyCODONE Med 02/25/17 13:38 Active 10 mg PO Q6H PRN Code Status [Resuscitation Status] Routine Resus Stat 02/25/17 15:52 Ordered Medication Orders Acetaminophen (Tylenol) 650 mg PO Q4H PRN PRN Reason: MILD PAIN/FEVER Acetaminophen (Tylenol) 650 mg RECTAL Q4H PRN PRN Reason: MILD PAIN/FEVER Albuterol (Proventil Neb Soln) 2.5 mg INH Q2H PRN PRN Reason: DYSPNEA Artificial Tears (Liquitears 1.4% Ophth Soln) 0 ml EYEBOTH Q1H PRN PRN Reason: Dry Eyes Bisacodyl (Dulcolax) 10 mg RECTAL DAILY PRN PRN Reason: CONSTIPATION Al Hydroxide/Mg Hydroxide 5 ml / Lidocaine HCl 5 ml/Diphenhydramine HCl 12.5 mg 0 ml PO QID PRN PRN Reason: acid reflux Escitalopram Oxalate (Lexapro) 10 mg PO DAILY [facility] Last Admin: 02/26/17 08:36 Dose: 10 mg Gabapentin (Neurontin) 300 mg PO BEDTIME [facility] Last Admin: 02/25/17 21:34 Dose: 300 mg Haloperidol (Haldol) 0.5 mg PO Q6H [facility] Last Admin: 02/26/17 13:07 Dose: 0.5 mg Admin: 02/26/17 07:32 Dose: 0.5 mg Admin: 02/26/17 03:06 Dose: 0.5 mg Admin: 02/25/17 20:04 Dose: 0.5 mg Admin: 02/25/17 14:32 Dose: 0.5 mg Haloperidol (Haldol) 0.5 mg .XX Q6H [facility] Last Admin: 02/26/17 13:10 Dose: Not Given Admin: 02/26/17 08:35 Dose: Admin: 02/26/17 03:06 Dose: Not Given Admin: 02/25/17 20:04 Dose: Not Given Admin: 02/25/17 15:45 Dose: Not Given Hyoscyamine (Hyomax-Sl) 0.125 mg SL Q4H PRN PRN Reason: SECRETIONS Hyoscyamine (Hyomax-Sl) 0.125 mg PO Q4H PRN PRN Reason: SECRETIONS Lactulose (Cephulac) 20 gm PO BID PRN PRN Reason: CONSTIPATION Lidocaine HCl (Xylocaine 2% Viscous) 5 ml PO Q4H PRN PRN Reason: DISCOMFORT Lorazepam (Ativan) 1 mg IVPUSH Q2H PRN PRN Reason: AGITATION Last Admin: 02/26/17 14:01 Dose: 1 mg Admin: 02/26/17 00:40 Dose: 1 mg Admin: 02/25/17 13:40 Dose: 1 mg Metoprolol Tartrate (Lopressor) 12.5 mg PO BID [facility] Last Admin: 02/26/17 08:36 Dose: 12.5 mg Admin: 02/25/17 21:33 Dose: 12.5 mg Morphine Sulfate (Ms Contin) 60 mg PO BID [facility] Last Admin: 02/26/17 08:36 Dose: 60 mg Admin: 02/25/17 21:37 Dose: 60 mg Morphine Sulfate (Morphine) 4 mg IVPUSH Q30M PRN PRN Reason: PAIN/AGITATION Last Admin: 02/25/17 18:41 Dose: 4 mg Ondansetron HCl (Zofran) 4 mg IVPUSH Q4H PRN PRN Reason: Nausea/Vomiting Oxycodone HCl (Oxycodone) 10 mg PO Q6H PRN PRN Reason: BREAKTHROUGH PAIN Last Admin: 02/26/17 13:07 Dose: 10 mg Pantoprazole Sodium (Protonix) 40 mg PO ACDINNER [facility] Last Admin: 02/25/17 18:02 Dose: 40 mg Polyethylene Glycol (Miralax) 17 gm PO BID [facility] Last Admin: 02/26/17 08:36 Dose: 17 gm Admin: 02/25/17 21:34 Dose: Not Given Scopolamine (Transderm-Scop) 1.5 mg TOP Q72H PRN PRN Reason: SECRETIONS Senna/Docusate Sodium (Senna Plus) 2 tab PO BID [facility] Last Admin: 02/26/17 08:36 Dose: 2 tab Admin: 02/25/17 21:34 Dose: 2 tab Sodium Chloride (Saline Flush) 10 ml FLUSH ASDIRECTED PRN PRN Reason: Keep Vein Open Last Admin: 02/26/17 14:02 Dose: 10 ml Admin: 02/25/17 18:41 Dose: 10 ml Admin: 02/25/17 13:40 Dose: 10 ml Zolpidem Tartrate (Ambien) 5 mg PO BEDTIME PRN PRN Reason: SLEEP
--- NOTE | 2017-02-26 14:41 | PCM.DCSUM1 ---
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 periods of lucidness/combativeness/hallucinations/ confusion/fear/and falls. hospice has been working with them in the past, but he has not been fully on board with the idea, understandibly as it is all so sudden. unable to care for him as he is a large man and has fallen on her and she was unable to get him up resulting in EMS assistance. he posses a danger to himself and to her as she can not keep him in a safe location without 24h monitoring for fear he may hurt himself by falling or hurt her as she tries to manage him. the family and pt are now on board with hospice for support and cares and will declining function and per their assessment as well, he can not go home safely and is at the end stages of his disease. the plan is to keep him safe and comfortable and continue adequate pain control, family support, and education. I agree with all these measures as appropriate. there were not plans for continued chemo or radiation therapy due to intolerance and progression of disease with worsening qualitiy of life. - Discharge Data Discharge Date: 02/26/17 Discharge Disposition: DC/Tfer to Hospice-Med Fac 51 Condition: Poor - Discharge Diagnosis/Problem(s) (1) Primary lung cancer with metastasis from lung to other site SNOMED Code(s): 384554096, 198396944 ICD Code: C34.90 - MALIGNANT NEOPLASM OF UNSP PART OF UNSP BRONCHUS OR LUNG Status: Acute Priority: High (2) Clinical decompensation SNOMED Code(s): 60858124 ICD Code: R68.89 - OTHER GENERAL SYMPTOMS AND SIGNS Status: Acute Priority: High (3) Decrease in appetite SNOMED Code(s): 56003774 ICD Code: R63.0 - ANOREXIA Status: Acute Priority: High (4) Dehydration with hyponatremia SNOMED Code(s): 07608330 ICD Code: E87.1 - HYPO-OSMOLALITY AND HYPONATREMIA Status: Acute Priority : High (5) Requires daily assistance for activities of daily living (ADL) and comfort needs SNOMED Code(s): 386281822 ICD Code: Z78.9 - OTHER SPECIFIED HEALTH STATUS Status: Acute Priority: High (6) Decubitus skin ulcer SNOMED Code(s): 752694718 ICD Code: L89.90 - PRESSURE ULCER OF UNSPECIFIED SITE, UNSPECIFIED STAGE Status: Chronic Priority: High Qualifiers: Pressure ulcer stage: stage 4 (7) Chronic, continuous use of opioids SNOMED Code(s): 264793957 ICD Code: F11.90 - OPIOID USE, UNSPECIFIED, UNCOMPLICATED Status: Acute Priority: High (8) History of dysphagia SNOMED Code(s): 661749846 ICD Code: Z87.19 - PERSONAL HISTORY OF OTHER DISEASES OF THE DIGESTIVE SYSTEM Status: Acute (9) Hx of radiation therapy SNOMED Code(s): 124304670 ICD Code: Z92.3 - PERSONAL HISTORY OF IRRADIATION Status: Acute (10) Patient on full hospice care SNOMED Code(s): 445567438 ICD Code: Z51.5 - ENCOUNTER FOR PALLIATIVE CARE Status: Acute - Patient Summary/Data Consults: Hospice - Discharge Plan Home Medications: Home Meds See Hospice Med List 1 each .XX ASDIRECTED 02/28/17 [History] Patient Handouts: Venous Thromboembolism Prevention - Discharge Summary/Plan Comment DC Time >30 min.: Yes Discharge Summary/Plan Comment: Please see above. cares for sacral wound to be cared for by nursing and hospice otherwise. their orders and med list has been reviewed and i agree with management as laid out. I sincerely appreciate their guidance and care for Mr. Hassan and his family. Total Time: 60% with > 50% spent face to face examining pain, explaining exam and role for hospice and my clinical impression of appropriateness as well as what to expect. all questions are answered to their satisfaction. - General Info Subjective Update: Lying in bed. resting. daughter at bedside. he took some small bites of ice cream last night. otherwise, not much. some confusion and combativeness overnight. no incidence however. thoughts are not logic or orientation or correct in context of situation or questioning. talks about things in the past as if they have just happened recently. knows his daughter. wants to go home. pain is controlled as he denies at this time. denies difficulty breathing. no headache. no chest pain. buttock tenderness from ulceration. no chills or sweats. - Patient Data Vitals - Most Recent: Last Vital Signs Temp 99.0 F 02/26/17 07:36 Pulse 113 H 02/26/17 08:36 Resp 18 02/26/17 07:36 BP 127/86 02/26/17 08:36 Pulse Ox 95 02/26/17 07:36 Weight - Most Recent: 93.531 kg I&O - Last 24 hours: Intake & Output 02/25/17 02/26/17 02/26/17 22:59 06:59 14:59 Intake Total 50 125 Output Total 500 700 Balance -450 -575 Med Orders - Current: Current Medications Acetaminophen (Tylenol) 650 mg PO Q4H PRN PRN Reason: MILD PAIN/FEVER Acetaminophen (Tylenol) 650 mg RECTAL Q4H PRN PRN Reason: MILD PAIN/FEVER Albuterol (Proventil Neb Soln) 2.5 mg INH Q2H PRN PRN Reason: DYSPNEA Artificial Tears (Liquitears 1.4% Ophth Soln) 0 ml EYEBOTH Q1H PRN PRN Reason: Dry Eyes Bisacodyl (Dulcolax) 10 mg RECTAL DAILY PRN PRN Reason: CONSTIPATION Al Hydroxide/Mg Hydroxide 5 ml / Lidocaine HCl 5 ml/Diphenhydramine HCl 12.5 mg 0 ml PO QID PRN PRN Reason: acid reflux Escitalopram Oxalate (Lexapro) 10 mg PO DAILY [facility] Last Admin: 02/26/17 08:36 Dose: 10 mg Gabapentin (Neurontin) 300 mg PO BEDTIME [facility] Last Admin: 02/25/17 21:34 Dose: 300 mg Haloperidol (Haldol) 0.5 mg PO Q6H [facility] Last Admin: 02/26/17 13:07 Dose: 0.5 mg Haloperidol (Haldol) 0.5 mg .XX Q6H [facility] Last Admin: 02/26/17 13:10 Dose: Not Given Hyoscyamine (Hyomax-Sl) 0.125 mg SL Q4H PRN PRN Reason: SECRETIONS Hyoscyamine (Hyomax-Sl) 0.125 mg PO Q4H PRN PRN Reason: SECRETIONS Lactulose (Cephulac) 20 gm PO BID PRN PRN Reason: CONSTIPATION Lidocaine HCl (Xylocaine 2% Viscous) 5 ml PO Q4H PRN PRN Reason: DISCOMFORT Lorazepam (Ativan) 1 mg IVPUSH Q2H PRN PRN Reason: AGITATION Last Admin: 02/26/17 14:01 Dose: 1 mg Metoprolol Tartrate (Lopressor) 12.5 mg PO BID [facility] Last Admin: 02/26/17 08:36 Dose: 12.5 mg Morphine Sulfate (Ms Contin) 60 mg PO BID [facility] Last Admin: 02/26/17 08:36 Dose: 60 mg Morphine Sulfate (Morphine) 4 mg IVPUSH Q30M PRN PRN Reason: PAIN/AGITATION Last Admin: 02/25/17 18:41 Dose: 4 mg Ondansetron HCl (Zofran) 4 mg IVPUSH Q4H PRN PRN Reason: Nausea/Vomiting Oxycodone HCl (Oxycodone) 10 mg PO Q6H PRN PRN Reason: BREAKTHROUGH PAIN Last Admin: 02/26/17 13:07 Dose: 10 mg Pantoprazole Sodium (Protonix) 40 mg PO ACDINNER [facility] Last Admin: 02/25/17 18:02 Dose: 40 mg Polyethylene Glycol (Miralax) 17 gm PO BID [facility] Last Admin: 02/26/17 08:36 Dose: 17 gm Scopolamine (Transderm-Scop) 1.5 mg TOP Q72H PRN PRN Reason: SECRETIONS Senna/Docusate Sodium (Senna Plus) 2 tab PO BID [facility] Last Admin: 02/26/17 08:36 Dose: 2 tab Sodium Chloride (Saline Flush) 10 ml FLUSH ASDIRECTED PRN PRN Reason: Keep Vein Open Last Admin: 02/26/17 14:02 Dose: 10 ml Zolpidem Tartrate (Ambien) 5 mg PO BEDTIME PRN PRN Reason: SLEEP - Exam Quality Assessment: Reports: DVT prophylaxis, skin breakdown (stage 4 ulceration sacral with clean base no or extension.) General: Reports: alert, cooperative, no acute distress. Denies: oriented HEENT: Reports: Pupils equal Neck: Reports: supple, no JVD Lungs: Reports: Clear to auscultation, Normal respiratory effort Cardiovascular: Reports: Regular Rate, Regular Rhythm, No Murmurs Abdomen: Reports: bowel sounds present, soft, no tenderness, no distension (Male) Exam: Normal Inspection Rectal (Males) Exam: Deferred Back Exam: Reports: Other (as above) Extremities: Reports: no edema, calf tenderness. Denies: normal pulses Skin: Reports: cool Wound/Incisions: Reports: dressing dry and intact, no drainage, decubitis Neurological: Reports: no new focal deficit, strength equal bilateral Psy/Mental Status: Reports: labile mood, anxious, depressed, agitated, hallucinations *Q Meaningful Use (DIS) - VTE *Q VTE Criteria *Q: - Stroke *Q Stroke Criteria *Q: - AMI *Q AMI Criteria *Q:
[2017-02-26] MEDS: Pantoprazole 40 MG Tab.CR *PTOM PO SCH (17:40)
[2017-02-26] MEDS: Morphine 4 MG/ML Syringe IVPUSH PRN (18:36)
[2017-02-26] MEDS: Gabapentin 300 MG Cap *PTOM PO SCH (21:27)
[2017-02-27] MEDS: Haloperidol 0.5 MG Tab PO SCH ×2 (01:42→09:08)
[2017-02-27] MEDS: Haloperidol 0.5 MG Tab SCH ×2 (01:43→09:08)
[2017-02-27] MEDS: Docusate Sodium/Sennosides 50-8.6 MG Tab *PTOM PO SCH ×3 (09:09→21:42)
[2017-02-27] MEDS: Metoprolol Tartrate 25 MG Tab *PTOM PO SCH ×3 (09:09→21:41)
[2017-02-27] MEDS: Morphine 30 MG Tab.ER PO SCH (09:14)
[2017-02-27] MEDS ORDERED: HALOPERIDOL 0.5 MG SCH (10:45)
[2017-02-27] MEDS ORDERED: HALOPERIDOL 0.5 MG PO SCH ×3 (10:45→14:00)
[2017-02-27] MEDS: MORPHINE 20 MG/ML PO PRN ×2 (12:05→21:37)
[2017-02-27] MEDS: HALOPERIDOL 2 MG PO SCH ×2 (14:03→19:50)
[2017-02-27] MEDS: Pantoprazole 40 MG Tab.CR *PTOM PO SCH (17:45)
[2017-02-27] MEDS: oxyCODONE 5 MG Tab *PTOM PO PRN (17:50)
[2017-02-27] MEDS: MORPHINE 60 MG PO SCH ×2 (19:51→21:42)
[2017-02-27] MEDS: Gabapentin 300 MG Cap *PTOM PO SCH ×2 (19:52→21:42)
[2017-02-28] MEDS: HALOPERIDOL 2 MG PO SCH ×4 (03:06→20:38)
[2017-02-28] MEDS: oxyCODONE 5 MG Tab *PTOM PO PRN ×3 (04:48→23:57)
[2017-02-28] MEDS: MORPHINE 20 MG/ML PO PRN (07:53)
[2017-02-28] MEDS: Metoprolol Tartrate 25 MG Tab *PTOM PO SCH ×2 (09:33→20:39)
[2017-02-28] MEDS: Docusate Sodium/Sennosides 50-8.6 MG Tab *PTOM PO SCH ×2 (09:34→20:42)
[2017-02-28] MEDS: MORPHINE 60 MG PO SCH ×2 (09:35→20:40)
[2017-02-28] MEDS: LORAZEPAM 1 MG PO PRN ×2 (11:24→13:47)
[2017-02-28] MEDS: Pantoprazole 40 MG Tab.CR *PTOM PO SCH (17:22)
[2017-02-28] MEDS: Gabapentin 300 MG Cap *PTOM PO SCH (20:42)
[2017-03-01] MEDS: HALOPERIDOL 2 MG PO SCH ×2 (01:15→08:02)
[2017-03-01] MEDS: oxyCODONE 5 MG Tab *PTOM PO PRN (08:03)
[2017-03-01] MEDS: LORAZEPAM 1 MG PO PRN (08:05)
[2017-03-01] MEDS: Metoprolol Tartrate 25 MG Tab *PTOM PO SCH (08:29)
[2017-03-01] MEDS: Docusate Sodium/Sennosides 50-8.6 MG Tab *PTOM PO SCH (08:30)
[2017-03-01] MEDS: MORPHINE 60 MG PO SCH (08:30)
[2017-03-01 08:31] VITALS: BP 108/80
[2017-03-01] MEDS: MORPHINE 20 MG/ML PO PRN (12:06)
--- NOTE | 2017-04-05 19:36 | PCM.SN ---
- Free Text/Narrative Note: Date: 02/26/2017 Sub: 61 y male transitioned yesterday to hospice inpt for pain control, med adjustment and family support. he continues to decline with regards to cognition , and oral intake. remains intermittently aggitated mainly at night. pain is thus far well controlled. family is supportive and present most of the time. he tells me he is not in pain. still wants to go home. states was able to drink some water yesterday and this morning. didnt much like the ensure, but taking some. no choking or coughing. not sure if he slept well. tangential thoughts and difficult to keep on task or connect conversation. speech is clear however. follow commands. Ros: as above allergies, meds, cares, i/o, nursing report, family report all reviewed. vitals: remains afebrile, tachy, normotensive and normal sats on RA. Exam: No trauma. iv site healthy. alert. conjunctiva clear, PERR, hearing intact, dry mucous membranes, tongue protrudes midline. gag reflex intact neck supple. lungs clear heart, reg rhy, tachy rate, cool extremities. no edema. abd; soft, non tender. hypoactive bowels. back: dressing dry. just changed. ext: no focal deficit. skin; no rash or jaundice. no other wounds or lesions. Assessment: stage IV SCC of the lung with mets to brain and spine. weight loss and poor nutition secondary to lack of appetite or intake decubitis wound as result of above. debility and malaise due to above. requires 24h cares/supervision due to weakness and cognitive decline dnr/dni/no artificial nutritional support Plan: at this time, i do not believe his status will maintain at this level much longer and move to go hospice respite. he will be made comfortable and will keep his iv at this time if needed, but if it comes out, will leave out. discussed with family and they are comfortable with this plan of care. Hospice conference and agree with cares and assessment. orders per their recommendations.
== END 2017-03-01 12:50 | disposition hospice, inpatient (51) | DRG 181 ==
LOC: FB.MS 12:51
PROVIDERS: ADMIT Family Medicine; ATTEND Family Medicine
DX: C34.90 Malignant neoplasm of unspecified part of unspecified bronchus or lung (principal); C79.51 Secondary malignant neoplasm of bone; C79.31 Secondary malignant neoplasm of brain; Z51.5 Encounter for palliative care; Z66 Do not resuscitate; I10 Essential (primary) hypertension; Z86.718 Personal history of other venous thrombosis and embolism; Z86.711 Personal history of pulmonary embolism; F41.9 Anxiety disorder, unspecified; Z87.891 Personal history of nicotine dependence; R68.89 Other general symptoms and signs; R63.0 Anorexia; F11.90 Opioid use, unspecified, uncomplicated; Z79.82 Long term (current) use of aspirin; L89.899 Pressure ulcer of other site, unspecified stage; Z75.5 Holiday relief care
CPT/HCPCS: A4217; A9270-GY; J2060; J2270; J7050; Q5005